=== PATIENT | male | born 1970 | race African-American/Black ===

== ENCOUNTER 2021-03-13 17:12 | Inpatient (IN) ==
[2021-03-13 17:51] LABS: Basophils % 0.1 % (0.0-0.8); Hematocrit 31.6 VOL% (42.0-52.0); Hemoglobin 10.3 GM/DL (14.0-18.0); Immature Granulocytes % 0.6 %; Immature Granulocytes Absolute 0.12 #; Lymphocytes # 0.1 10*3/uL (1.4-4.0); Lymphocytes % 0.5 % (21.2-54.2); Mean Corpuscular HGB Conc 32.6 GM/DL (32-36); Mean Corpuscular Volume 78.2 FL (87-102); Mean Platelet Volume 11.7 FL (9.6-12.0); Neutrophils % 97.8 % (38.7-73.9); Platelet Count 90 T/CUMM (130-400); Red Blood Count 4.04 MC/CUMM (3.8-5.5); Red Cell Distribution Width 16.5 % (9.3-17.3); White Blood Count 20.6 T/CUMM (4-12)
[2021-03-13 17:59] LABS: Potassium 3.6 MMOL/L (3.5-5.1)
[2021-03-13 18:21] LABS: Band Neutrophils 14 % (0-10); Lymphocytes 4 % (20-55); Segmented Neutrophils 79 % (50-85); Total Cells Counted 100
[2021-03-13 18:23] LABS: Microcytosis Slight; Platelet Estimate Decreased
[2021-03-13] MEDS ORDERED: SODIUM CHLORIDE 0.9% 1,000 ML IV STA ×2 (18:23→19:14)
[2021-03-13] MEDS ORDERED: PIPERACILLIN/TAZOBACTAM 3,375 MG in SODIUM CHLORIDE 0.9% 100 ML IV STA (19:14)
[2021-03-13 19:36] LABS: Bilirubin,Urine Negative (Negative); Blood, Urine Negative (Negative); Glucose,Urine (UA) Negative (Negative); Hyaline Casts,Urine 5 /LPF (0-3); Ketones,Urine Negative (Negative); Mucus,Urine Occasional /LPF (Occasional); Nitrite,Urine Negative (Negative); Protein,Urine Negative; RBC,Urine 1 /HPF (0-4); Squamous Epithelial Cell,Urine Occasional /HPF (0-10); Urine Appearance CLEAR (Clear); Urine Color Yellow (Yellow); Urine Specific Gravity 1.011 (1.001-1.035); Urine Urobilinogen < 2.0 EU/DL (0.2-1.0); WBC,Urine 2 /HPF (0-6)
[2021-03-13 19:48] LABS: Albumin 3.3 G/DL (3.4-5.0); Bilirubin,Direct 0.3 MG/DL (0.0-0.20); Bilirubin,Indirect 0.7 MG/DL (0.0-1.0); Total Protein 6.2 G/DL (6.4-8.2)
[2021-03-13] MEDS ORDERED: ACETAMINOPHEN 500 MG TABLET PO STA (19:56)
[2021-03-13] MEDS ORDERED: DEXTROSE 50% 25 GM/50 ML VIAL IV PRN (21:03)
[2021-03-13] MEDS ORDERED: GLUCAGON 1 MG VIAL IM PRN (21:03)
[2021-03-13] MEDS ORDERED: SODIUM CHLORIDE 0.9% 1,000 ML IV ONE (21:37)
[2021-03-13] MEDS: SODIUM CHLORIDE 0.9% 1,000 ML IV SCH (22:31)
[2021-03-13] MEDS: VANCOMYCIN INJ 1,250 MG in SODIUM CHLORIDE 0.9% 250 ML IV SCH (22:36)
[2021-03-14] MEDS: CEFEPIME 1,000 MG in SODIUM CHLORIDE 0.9% 100 ML IV SCH ×4 (03:05→20:30)
[2021-03-14 04:09] LABS: Basophils # 0.1 10*3/uL (0.0-0.2); Basophils % 0.3 % (0.0-0.8); Eosinophils % 0.1 % (0.00-10.9); Hematocrit 28.8 VOL% (42.0-52.0); Hemoglobin 9.3 GM/DL (14.0-18.0); Immature Granulocytes Absolute 0.17 #; Lymphocytes # 0.3 10*3/uL (1.4-4.0); Lymphocytes % 1.5 % (21.2-54.2); Mean Corpuscular HGB Conc 32.3 GM/DL (32-36); Mean Corpuscular Volume 78.7 FL (87-102); Mean Platelet Volume 10.9 FL (9.6-12.0); Monocytes % 10.9 % (1.7-12.7); Neutrophils % 86.2 % (38.7-73.9); Platelet Count 72 T/CUMM (130-400); Red Blood Count 3.66 MC/CUMM (3.8-5.5); Red Cell Distribution Width 16.6 % (9.3-17.3); White Blood Count 17.7 T/CUMM (4-12)
[2021-03-14 04:27] LABS: Albumin 2.9 G/DL (3.4-5.0); Bilirubin,Total 0.9 MG/DL (0.2-1.0); Osmolality,Calculated 274.7 MOS/KG (273-304); Potassium 4.4 MMOL/L (3.5-5.1); Total Protein 5.6 G/DL (6.4-8.2)
[2021-03-14 04:31] LABS: Eosinophils 1 % (0-10); Lymphocytes 1 % (20-55); Segmented Neutrophils 89 % (50-85); Total Cells Counted 100
[2021-03-14 04:32] LABS: Hypochromasia 1+; Microcytosis Slight; Platelet Estimate Decreased
[2021-03-14] MEDS: ACETAMINOPHEN 500 MG TABLET PO PRN ×2 (04:40→11:44)
[2021-03-14] MEDS: SODIUM CHLORIDE 0.9% 1,000 ML IV SCH (10:19)
[2021-03-14] MEDS ORDERED: BUPIVACAINE MPF 0.25% 30 ML VIAL ONE (11:29)
[2021-03-14] MEDS ORDERED: LIDOCAINE 1%/EPI INJ 20 ML VIAL ONE (11:29)
[2021-03-14] MEDS ORDERED: TISSUE ADHESIVE 1 EACH APPLICATOR TOP ONE (11:30)
[2021-03-14] MEDS: VANCOMYCIN INJ 1,250 MG in SODIUM CHLORIDE 0.9% 250 ML IV SCH ×2 (11:52→22:13)
[2021-03-14] MEDS ORDERED: ALBUMIN 5% 12.5 GM/250 ML VIAL IV ONE (12:07)
[2021-03-14] MEDS ORDERED: propofoL 200 MG/20 ML VIAL IV ONE (12:17)
[2021-03-14] MEDS ORDERED: DEXAMETHASONE 4 MG/1 ML VIAL ONE ×2 (12:17→13:30)
[2021-03-14] MEDS ORDERED: KETOROLAC 30 MG/1 ML VIAL ONE (12:17)
[2021-03-14] MEDS ORDERED: LIDOCAINE 2% 5 ML VIAL ONE (12:17)
[2021-03-14] MEDS ORDERED: ETOMIDATE 40 MG/20 ML VIAL IV ONE (12:17)
[2021-03-14] MEDS ORDERED: SEVOFLURANE 1 UNIT/15 MINUTE INH ONE ×5 (12:17→13:30)
[2021-03-14] MEDS ORDERED: ROCURONIUM 50 MG/5 ML VIAL IV ONE (12:17)
[2021-03-14] MEDS ORDERED: SUCCINYLCHOLINE 200 MG/10 ML VIAL ONE (12:17)
[2021-03-14] MEDS ORDERED: ONDANSETRON 4 MG/2 ML VIAL ONE (12:17)
[2021-03-14] MEDS ORDERED: fentaNYL 100 MCG/2 ML VIAL ONE (12:18)
[2021-03-14] MEDS ORDERED: MIDAZOLAM 2 MG/2 ML VIAL ONE (12:18)
[2021-03-14] MEDS ORDERED: NEOSTIGMINE 10 MG/10 ML VIAL ONE (12:23)
[2021-03-14] MEDS ORDERED: GLYCOPYRROLATE 0.4 MG/2 ML VIAL ONE (12:23)
[2021-03-14] MEDS ORDERED: metroNIDAZOLE INJ 500 MG in PREMIX 1 EACH IV ONE (13:00)
[2021-03-14] MEDS ORDERED: ACETAMINOPHEN INJ 1,000 MG/100 ML VIAL IV ONE (13:05)
[2021-03-14] MEDS ORDERED: ONDANSETRON 4 MG/2 ML VIAL IV PRN (14:13)
[2021-03-14] MEDS ORDERED: HYDROmorphone 2 MG/1 ML VIAL IV PRN (14:13)
[2021-03-15] MEDS: ALUMINUM/MAGNES/SIMETH MAX STR 30 ML UDCUP PO PRN ×3 (00:08→23:03)
[2021-03-15] MEDS: CEFEPIME 1,000 MG in SODIUM CHLORIDE 0.9% 100 ML IV SCH ×4 (03:07→20:34)
[2021-03-15 05:54] LABS: Basophils % 0.2 % (0.0-0.8); Hematocrit 27.4 VOL% (42.0-52.0); Immature Granulocytes % 0.8 %; Lymphocytes # 0.1 10*3/uL (1.4-4.0); Lymphocytes % 0.9 % (21.2-54.2); Mean Corpuscular HGB Conc 32.8 GM/DL (32-36); Mean Corpuscular Volume 78.1 FL (87-102); Mean Platelet Volume 10.8 FL (9.6-12.0); Monocytes % 8.7 % (1.7-12.7); Neutrophils % 89.4 % (38.7-73.9); Platelet Count 67 T/CUMM (130-400); Red Blood Count 3.51 MC/CUMM (3.8-5.5); Red Cell Distribution Width 16.9 % (9.3-17.3); White Blood Count 12.4 T/CUMM (4-12)
[2021-03-15 06:24] LABS: Band Neutrophils 4 % (0-10); Hypochromasia 1+; Lymphocytes 1 % (20-55); Microcytosis 1+; Segmented Neutrophils 90 % (50-85); Total Cells Counted 100
[2021-03-15 06:25] LABS: Platelet Estimate Decreased; Target Cells Slight
[2021-03-15 06:29] LABS: Albumin 2.7 G/DL (3.4-5.0); Calcium 8.2 MG/DL (8.5-10.1); Osmolality,Calculated 277.8 MOS/KG (273-304); Potassium 3.9 MMOL/L (3.5-5.1); Total Protein 5.6 G/DL (6.4-8.2)
[2021-03-15] MEDS: metroNIDAZOLE INJ 500 MG in PREMIX 1 EACH IV SCH ×2 (09:29→16:44)
[2021-03-16] MEDS: metroNIDAZOLE INJ 500 MG in PREMIX 1 EACH IV SCH ×2 (00:29→09:42)
[2021-03-16] MEDS: CEFEPIME 1,000 MG in SODIUM CHLORIDE 0.9% 100 ML IV SCH ×4 (03:23→20:32)
[2021-03-17] MEDS: ACETAMINOPHEN 500 MG TABLET PO PRN ×2 (00:36→23:51)
[2021-03-17] MEDS: CEFEPIME 1,000 MG in SODIUM CHLORIDE 0.9% 100 ML IV SCH ×4 (04:09→20:32)
[2021-03-17 05:49] LABS: Basophils % 0.6 % (0.0-0.8); Eosinophils % 0.6 % (0.00-10.9); Hematocrit 29.1 VOL% (42.0-52.0); Immature Granulocytes % 0.6 %; Immature Granulocytes Absolute 0.02 #; Lymphocytes # 0.2 10*3/uL (1.4-4.0); Lymphocytes % 4.6 % (21.2-54.2); Mean Corpuscular HGB Conc 30.9 GM/DL (32-36); Mean Corpuscular Volume 80.6 FL (87-102); Mean Platelet Volume 11.8 FL (9.6-12.0); Monocytes % 18.1 % (1.7-12.7); Neutrophils % 75.5 % (38.7-73.9); Platelet Count 84 T/CUMM (130-400); Red Blood Count 3.61 MC/CUMM (3.8-5.5); Red Cell Distribution Width 16.7 % (9.3-17.3); White Blood Count 3.5 T/CUMM (4-12)
[2021-03-17 06:10] LABS: Calcium 8.5 MG/DL (8.5-10.1); Osmolality,Calculated 274.5 MOS/KG (273-304); Potassium 4.3 MMOL/L (3.5-5.1)
[2021-03-17 06:31] LABS: Lymphocytes 9 % (20-55); Segmented Neutrophils 79 % (50-85); Total Cells Counted 100
[2021-03-17 06:32] LABS: Hypochromasia 1+; Microcytosis Slight; Platelet Estimate Decreased
[2021-03-17] MEDS ORDERED: MYLANTA/LIDO VISC/NYST 180 ML BOTTLE SWISH/SPIT PRN (17:43)
[2021-03-18] MEDS: CEFEPIME 1,000 MG in SODIUM CHLORIDE 0.9% 100 ML IV SCH ×4 (03:02→20:30)
[2021-03-18 05:25] LABS: Basophils % 0.8 % (0.0-0.8); Eosinophils % 1.3 % (0.00-10.9); Hematocrit 29.1 VOL% (42.0-52.0); Hemoglobin 9.2 GM/DL (14.0-18.0); Immature Granulocytes % 1.3 %; Immature Granulocytes Absolute 0.03 #; Lymphocytes # 0.2 10*3/uL (1.4-4.0); Lymphocytes % 7.9 % (21.2-54.2); Mean Corpuscular HGB Conc 31.6 GM/DL (32-36); Mean Corpuscular Volume 78.4 FL (87-102); Mean Platelet Volume 10.4 FL (9.6-12.0); Monocytes % 25.9 % (1.7-12.7); Neutrophils % 62.8 % (38.7-73.9); Red Blood Count 3.71 MC/CUMM (3.8-5.5); Red Cell Distribution Width 16.7 % (9.3-17.3); White Blood Count 2.4 T/CUMM (4-12)
[2021-03-18 05:55] LABS: Albumin 2.4 G/DL (3.4-5.0); Bilirubin,Total 0.6 MG/DL (0.2-1.0); Calcium 8.4 MG/DL (8.5-10.1); Osmolality,Calculated 276.4 MOS/KG (273-304); Potassium 3.9 MMOL/L (3.5-5.1); Total Protein 5.4 G/DL (6.4-8.2)
[2021-03-18 06:03] LABS: Platelet Count 90 T/CUMM (130-400)
[2021-03-18 06:58] LABS: Band Neutrophils 5 % (0-10); Eosinophils 1 % (0-10); Metamyelocytes 2 %
[2021-03-18 06:59] LABS: Hypochromasia 2+; Lymphocytes 9 % (20-55); Platelet Estimate Decreased; Segmented Neutrophils 55 % (50-85); Total Cells Counted 100
[2021-03-18 07:00] LABS: Anisocytosis 2+; Microcytosis 2+; Polychromasia Few
[2021-03-19] MEDS: ACETAMINOPHEN 500 MG TABLET PO PRN ×2 (00:18→21:30)
[2021-03-19] MEDS: CEFEPIME 1,000 MG in SODIUM CHLORIDE 0.9% 100 ML IV SCH ×4 (03:15→21:17)
[2021-03-19 05:31] LABS: Basophils % 0.8 % (0.0-0.8); Eosinophils # 0.1 10*3/uL (0.0-0.87); Eosinophils % 2.4 % (0.00-10.9); Hematocrit 29.7 VOL% (42.0-52.0); Hemoglobin 9.7 GM/DL (14.0-18.0); Immature Granulocytes % 0.4 %; Immature Granulocytes Absolute 0.01 #; Lymphocytes # 0.2 10*3/uL (1.4-4.0); Lymphocytes % 9.2 % (21.2-54.2); Mean Corpuscular HGB Conc 32.7 GM/DL (32-36); Mean Corpuscular Volume 77.1 FL (87-102); Monocytes % 25.9 % (1.7-12.7); Neutrophils % 61.3 % (38.7-73.9); Platelet Count 90 T/CUMM (130-400); Red Blood Count 3.85 MC/CUMM (3.8-5.5); Red Cell Distribution Width 16.7 % (9.3-17.3); White Blood Count 2.5 T/CUMM (4-12)
[2021-03-19 05:59] LABS: Eosinophils 1 % (0-10); Hypochromasia Slight; Lymphocytes 10 % (20-55); Microcytosis 1+; Platelet Estimate Decreased; Segmented Neutrophils 67 % (50-85); Total Cells Counted 100
[2021-03-19 06:01] LABS: Albumin 2.4 G/DL (3.4-5.0); Bilirubin,Total 1.4 MG/DL (0.2-1.0); Calcium 8.5 MG/DL (8.5-10.1); Osmolality,Calculated 272.7 MOS/KG (273-304); Potassium 4.6 MMOL/L (3.5-5.1); Total Protein 5.6 G/DL (6.4-8.2)
[2021-03-19] MEDS: metroNIDAZOLE INJ 500 MG in PREMIX 1 EACH IV SCH ×3 (09:01→21:19)
[2021-03-19] MEDS: FONDAPARINUX 2.5 MG/0.5 ML SYRINGE SUBCUT SCH (11:15)
[2021-03-20] MEDS: CEFEPIME 1,000 MG in SODIUM CHLORIDE 0.9% 100 ML IV SCH ×4 (03:08→20:27)
[2021-03-20] MEDS: metroNIDAZOLE INJ 500 MG in PREMIX 1 EACH IV SCH ×4 (03:10→21:06)
[2021-03-20] MEDS: FONDAPARINUX 2.5 MG/0.5 ML SYRINGE SUBCUT SCH (17:49)
[2021-03-21] MEDS: metroNIDAZOLE INJ 500 MG in PREMIX 1 EACH IV SCH ×2 (02:30→08:24)
[2021-03-21] MEDS: CEFEPIME 1,000 MG in SODIUM CHLORIDE 0.9% 100 ML IV SCH ×2 (03:54→09:54)
[2021-03-21] MEDS: FONDAPARINUX 2.5 MG/0.5 ML SYRINGE SUBCUT SCH (10:22)
[2021-03-21 11:19] VITALS: BP 117/77
== END 2021-03-21 11:42 | disposition home or self-care (01) | DRG 338 ==
LOC: EDUNIT# → EDBD → N.ED 17:12 → SUATTDRO 21:03 → N.EDINP 21:03 → N.4E 22:00
PROVIDERS: ADMIT Internal Medicine; ATTEND Internal Medicine

== ENCOUNTER 2021-07-08 00:51 | Inpatient (IN) ==
[2021-07-08] MEDS ORDERED: SODIUM CHLORIDE 0.9% 1,000 ML IV STA (01:26)
[2021-07-08] MEDS ORDERED: ONDANSETRON 4 MG/2 ML VIAL IV STA (01:26)
[2021-07-08 01:39] LABS: Basophils % 0.1 % (0.0-0.8); Hematocrit 31.9 VOL% (42.0-52.0); Hemoglobin 10.4 GM/DL (14.0-18.0); Immature Granulocytes % 0.9 %; Immature Granulocytes Absolute 0.09 #; Lymphocytes # 0.2 10*3/uL (1.4-4.0); Lymphocytes % 1.8 % (21.2-54.2); Mean Corpuscular HGB Conc 32.6 GM/DL (32-36); Mean Platelet Volume 10.7 FL (9.6-12.0); Monocytes % 10.9 % (1.7-12.7); Neutrophils % 86.3 % (38.7-73.9); Platelet Count 137 T/CUMM (130-400); Red Cell Distribution Width 16.6 % (9.3-17.3)
[2021-07-08 01:54] LABS: Alanine Aminotransferase 126 U/L (16-61); Alkaline Phosphatase 469 U/L (45-117); Amylase 11 U/L (25-115); Aspartate Amino Transferase 117 U/L (0-37); Blood Urea Nitrogen 35 MG/DL (7-18); Calcium 8.5 MG/DL (8.5-10.1); Carbon Dioxide 29 MMOL/L (21-32); Estimated Glom Filtration Rate 125 ML/MIN; Glucose 119 MG/DL (74-106); Osmolality,Calculated 261.4 MOS/KG (273-304); Potassium 3.6 MMOL/L (3.5-5.1); Sodium 126 MMOL/L (136-145); Total Protein 5.8 G/DL (6.4-8.2)
[2021-07-08 02:17] LABS: Hypochromasia Slight; Lymphocytes 2 % (20-55); Microcytosis Slight; Platelet Estimate Normal; Segmented Neutrophils 89 % (50-85); Total Cells Counted 100
[2021-07-08] MEDS ORDERED: PROMETHAZINE 25 MG/1 ML VIAL IM STA (02:35)
[2021-07-08] MEDS ORDERED: PROCHLORPERAZINE 10 MG/2 ML VIAL IV ONE (03:04)
[2021-07-08] MEDS ORDERED: PANTOPRAZOLE 40 MG VIAL IV STA (03:37)
[2021-07-08 04:02] LABS: Bacteria,Urine Occasional /HPF (Few); Blood, Urine Negative (Negative); Glucose,Urine (UA) Negative (Negative); Granular Casts,Urine 3 /LPF (0-1); Hyaline Casts,Urine 7 /LPF (0-3); Ketones,Urine Negative (Negative); Mucus,Urine Occasional /LPF (Occasional); Nitrite,Urine Negative (Negative); Protein,Urine Negative; RBC,Urine 1 /HPF (0-4); Squamous Epithelial Cell,Urine Occasional /HPF (0-10); Urine Appearance CLEAR (Clear); Urine Color Amber (Yellow); Urine Specific Gravity 1.024 (1.001-1.035)
[2021-07-08 04:08] LABS: Bilirubin,Urine Moderate mg/dL (Negative)
[2021-07-08] MEDS ORDERED: GLUCAGON 1 MG VIAL IM PRN (04:19)
[2021-07-08] MEDS ORDERED: DEXTROSE 50% 25 GM/50 ML VIAL IV PRN (04:19)
[2021-07-08] MEDS: SODIUM CHLORIDE 0.9% 1,000 ML IV SCH ×3 (05:34→22:17)
[2021-07-08] MEDS: ONDANSETRON 4 MG/2 ML VIAL IV PRN ×2 (05:35→17:47)
[2021-07-08] MEDS: cefTRIAXone 1,000 MG in SODIUM CHLORIDE 0.9% 100 ML IV SCH (05:35)
[2021-07-08] MEDS ORDERED: metroNIDAZOLE INJ 500 MG/100 ML PREMIX IV SCH (07:00)
[2021-07-08] MEDS: PROMETHAZINE INJ 25 MG in SODIUM CHLORIDE 0.9% 50 ML IV PRN ×2 (11:20→19:30)
[2021-07-08] MEDS ORDERED: PROCHLORPERAZINE 10 MG/2 ML VIAL IV PRN (13:10)
[2021-07-08] MEDS ORDERED: fentaNYL 25 MCG/HR PATCH TRANSDERM SCH (16:30)
[2021-07-08] MEDS ORDERED: MELATONIN 3 MG TABLET PO PRN (17:27)
[2021-07-08] MEDS ORDERED: traMADol 50 MG TABLET PO PRN (17:54)
[2021-07-08] MEDS ORDERED: LOPERAMIDE 2 MG CAPSULE PO PRN ×2 (17:54)
[2021-07-08] MEDS ORDERED: ACETAMINOPHEN 325 MG TABLET PO PRN (17:54)
[2021-07-08] MEDS ORDERED: MYLANTA/LIDO VISC 2:1 300 ML BOTTLE SWISH/SWAL PRN (17:54)
[2021-07-08] MEDS ORDERED: chlorproMAZINE INJ 25 MG in SODIUM CHLORIDE 0.9% 100 ML IV PRN (17:54)
[2021-07-08] MEDS ORDERED: chlorproMAZINE 25 MG TABLET PO PRN (17:54)
[2021-07-08] MEDS ORDERED: TEMAZEPAM 7.5 MG CAPSULE PO PRN (17:54)
[2021-07-08] MEDS ORDERED: ONDANSETRON 4 MG/2 ML VIAL IV PRN (17:54)
[2021-07-08] MEDS ORDERED: MAGNESIUM HYDROXIDE SUSP 30 ML UDCUP PO PRN (17:54)
[2021-07-08] MEDS ORDERED: BENZTROPINE 2 MG/2 ML AMP IV PRN (17:54)
[2021-07-08] MEDS ORDERED: diphenhydrAMINE CAP 25 MG CAPSULE PO PRN (17:54)
[2021-07-08] MEDS ORDERED: PROMETHAZINE INJ 25 MG in SODIUM CHLORIDE 0.9% 50 ML IV PRN (17:54)
[2021-07-08] MEDS ORDERED: guaiFENesin 200 MG/10 ML UDCUP PO PRN (17:54)
[2021-07-08] MEDS ORDERED: chlorproMAZINE INJ 50 MG in SODIUM CHLORIDE 0.9% 100 ML IV PRN (17:54)
[2021-07-08] MEDS ORDERED: LACTULOSE 20 GM/30 ML UDCUP PO PRN (17:54)
[2021-07-08] MEDS ORDERED: ALUMINUM/MAGNES/SIMETH MAX STR 30 ML UDCUP PO PRN (17:54)
[2021-07-08] MEDS ORDERED: MYLANTA/LIDO VISC 2:1 300 ML BOTTLE SWISH/SPIT PRN (17:54)
[2021-07-08] MEDS ORDERED: LORazepam 2 MG/1 ML VIAL IV PRN (20:11)
[2021-07-08] MEDS: PANTOPRAZOLE 40 MG VIAL IV SCH (21:29)
[2021-07-08] MEDS: ALPRAZolam 0.25 MG TABLET PO PRN (22:19)
[2021-07-09] MEDS: PROMETHAZINE INJ 25 MG in SODIUM CHLORIDE 0.9% 50 ML IV PRN (02:35)
[2021-07-09 04:24] LABS: Basophils % 0.1 % (0.0-0.8); Hematocrit 29.7 VOL% (42.0-52.0); Hemoglobin 9.5 GM/DL (14.0-18.0); Immature Granulocytes Absolute 0.11 #; Lymphocytes # 0.3 10*3/uL (1.4-4.0); Lymphocytes % 2.4 % (21.2-54.2); Mean Corpuscular Volume 76.9 FL (87-102); Mean Platelet Volume 10.7 FL (9.6-12.0); Neutrophils % 86.5 % (38.7-73.9); Platelet Count 191 T/CUMM (130-400); Red Blood Count 3.86 MC/CUMM (3.8-5.5); Red Cell Distribution Width 16.9 % (9.3-17.3); White Blood Count 10.6 T/CUMM (4-12)
[2021-07-09] MEDS: cefTRIAXone 1,000 MG in SODIUM CHLORIDE 0.9% 100 ML IV SCH (04:38)
[2021-07-09 04:45] LABS: Band Neutrophils 6 % (0-10); Hypochromasia 1+; Lymphocytes 2 % (20-55); Segmented Neutrophils 84 % (50-85); Total Cells Counted 100
[2021-07-09 04:46] LABS: Microcytosis 1+; Ovalocytes Slight; Platelet Estimate Adequate; Target Cells Slight
[2021-07-09 04:49] LABS: Albumin 1.9 G/DL (3.4-5.0); Bilirubin,Total 6.2 MG/DL (0.20-1.00); Calcium 8.1 MG/DL (8.5-10.1); Osmolality,Calculated 279.2 MOS/KG (273-304); Potassium 3.9 MMOL/L (3.5-5.1); Total Protein 5.9 G/DL (6.4-8.2)
[2021-07-09] MEDS: SODIUM CHLORIDE 0.9% 1,000 ML IV SCH (06:23)
[2021-07-09 08:37] LABS: INR 1.3; PT Patient Result 14.2 SECS (10.5-12.0)
[2021-07-09] MEDS: ALPRAZolam 0.25 MG TABLET PO PRN (09:38)
[2021-07-09] MEDS: PANTOPRAZOLE 40 MG VIAL IV SCH (09:38)
[2021-07-09 15:46] VITALS: BP 112/72
== END 2021-07-09 15:10 | disposition hospice, home (50) | DRG 392 ==
LOC: N.ED 00:51 → N.EDINP 04:13 → N.4E 04:29
PROVIDERS: ADMIT Hospitalist; ATTEND Hospitalist